=== PATIENT | female | born 1990 | race Two or more races ===

== ENCOUNTER 2017-02-14 10:12 | Emergency (ER) | payer OTHER ==
[~2017-02-14 10:12] MED LIST: AFRIN NASAL SPR15 ML; AURALGAN OTIC S14 ML OT; CLEOCIN HCL150 MG PO; KEFLEX500 MG PO; PHENERGAN PO; PRILOSEC20 M1 PO; VICODIN ES 7.51 EACH PO; ZYRTEC PO
== END 2017-02-14 11:29 | disposition left against medical advice (07) ==
LOC: CED 10:12
DX: Z53.21 Procedure and treatment not carried out due to patient leaving prior to being seen by health care provider (principal)

== ENCOUNTER 2017-04-23 01:58 | Emergency (ER) | payer OTHER ==
[~2017-04-23] VITALS: Ht 177.8 cm; Wt 70.3 kg
== END 2017-04-23 03:20 | disposition home or self-care (01) ==
LOC: CED 01:58
DX: K04.7 Periapical abscess without sinus (principal); F17.210 Nicotine dependence, cigarettes, uncomplicated
CPT/HCPCS: 99282

== ENCOUNTER 2017-04-23 04:42 | Emergency (ER) | payer OTHER ==
[~2017-04-23] VITALS: Ht 167.6 cm; Wt 70.3 kg
== END 2017-04-23 05:48 | disposition home or self-care (01) ==
LOC: CED 04:42
DX: K08.89 Other specified disorders of teeth and supporting structures (principal); J30.2 Other seasonal allergic rhinitis; F17.200 Nicotine dependence, unspecified, uncomplicated
CPT/HCPCS: 96372; 99283; J1885